=== PATIENT | female | born 1975 | race Two or more races ===

== ENCOUNTER 2022-10-05 17:28 | Emergency (ER) | payer MEDICAID ==
[~2022-10-05] VITALS: Ht 152.4 cm; Wt 68.0 kg
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
--- NOTE | 2022-10-05 19:05 | NUR ---
PT TAKEN TO RADIOLOGY FOR XRAY
[2022-10-05 19:40] VITALS: BP 134/82
--- NOTE | 2022-10-05 19:49 | NUR ---
PATIENT BACK FROM RADIOLOGY
[2022-10-05] MEDS ORDERED: IBUP-1955 PO (22:28)
[2022-10-05] MEDS ORDERED: CYCL10TA9 PO (22:28)
[2022-10-05] MEDS ORDERED: ACETAMINOPHEN 325 MG TABLET PO ONE (22:30)
[2022-10-05] MEDS ORDERED: TDAP [DIPH/PERTUSSIS/TET] 0.5 ML VIAL IM ONE ×2 (22:30→22:31)
[2022-10-05] MEDS ORDERED: ACETAMINOPHEN ES 500 MG TABLET ONE (22:31)
--- NOTE | 2022-10-05 22:56 | NUR ---
Patient discharged to home in stable condition. Written and verbal after care instructions given. Patient verbalizes understanding of instruction.
== END 2022-10-05 22:56 | disposition home or self-care (01) ==
LOC: ER 17:41
DX: S70.01XA Contusion of right hip, initial encounter (principal); S50.02XA Contusion of left elbow, initial encounter; S49.92XA Unspecified injury of left shoulder and upper arm, initial encounter; I10 Essential (primary) hypertension; E11.9 Type 2 diabetes mellitus without complications; Z79.899 Other long term (current) drug therapy; S70.02XA Contusion of left hip, initial encounter; W20.8XXA Other cause of strike by thrown, projected or falling object, initial encounter; Y93.89 Activity, other specified; Y92.89 Other specified places as the place of occurrence of the external cause; Y99.8 Other external cause status
CPT/HCPCS: 71100-TC; 72040-TC; 73030-TC; 73080-TC; 73521; 90715

== ENCOUNTER 2022-10-08 07:58 | Emergency (ER) | payer MEDICAID ==
[~2022-10-08] VITALS: Ht 149.9 cm; Wt 71.7 kg
[~2022-10-08 07:58] MED LIST: CYCL10TA9 PO; IBUP-1955 PO
[2022-10-08 08:05] VITALS: BP 115/84
--- NOTE | 2022-10-08 08:09 | NUR ---
to ER, C/O left shoulder and left hip pain.
--- NOTE | 2022-10-08 08:09 | NUR ---
awaiting for ER MD to see.
[2022-10-08] MEDS ORDERED: IBUP-1953 PO (08:14)
--- NOTE | 2022-10-08 08:19 | NUR ---
Patient discharged to home in stable condition. Written and verbal after care instructions given. Patient verbalizes understanding of instruction.
== END 2022-10-08 08:19 | disposition home or self-care (01) ==
LOC: ER 08:01
DX: M54.50 Low back pain, unspecified (principal); M25.552 Pain in left hip; I10 Essential (primary) hypertension; E11.9 Type 2 diabetes mellitus without complications; Z79.899 Other long term (current) drug therapy; V89.2XXD Person injured in unspecified motor-vehicle accident, traffic, subsequent encounter

== ENCOUNTER 2022-10-17 10:43 | Emergency (ER) | payer MEDICAID ==
[~2022-10-17] VITALS: Ht 142.2 cm; Wt 71.7 kg
[~2022-10-17 10:43] MED LIST changes: +IBUP-1953 PO
[2022-10-17 10:56] VITALS: BP 114/80
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
[2022-10-17] MEDS ORDERED: METHOCARBAMOL (500MG) 500 MG TABLET PO ONE (16:00)
[2022-10-17] MEDS ORDERED: LIDOCAINE 5% (PATCH) 1 EA PATCH TP ONE ×2 (16:00→16:01)
[2022-10-17] MEDS ORDERED: METHOCARBAMOL (500MG) 500 MG TABLET ONE (16:01)
[2022-10-17] MEDS ORDERED: LIDO30AD10 TP (16:34)
[2022-10-17] MEDS ORDERED: METH-649 PO (16:34)
== END 2022-10-17 19:04 | disposition home or self-care (01) ==
LOC: ER 11:03
DX: S16.1XXA Strain of muscle, fascia and tendon at neck level, initial encounter (principal); S70.02XA Contusion of left hip, initial encounter; M54.50 Low back pain, unspecified; I10 Essential (primary) hypertension; E11.9 Type 2 diabetes mellitus without complications; Z79.899 Other long term (current) drug therapy; V89.2XXA Person injured in unspecified motor-vehicle accident, traffic, initial encounter; Y93.89 Activity, other specified; Y92.89 Other specified places as the place of occurrence of the external cause; Y99.8 Other external cause status
CPT/HCPCS: 72125-TC; 72131-TC

== ENCOUNTER 2022-10-22 07:43 | Emergency (ER) | payer MEDICAID ==
[~2022-10-22] VITALS: Ht 149.9 cm; Wt 68.9 kg
[~2022-10-22 07:43] MED LIST changes: +LIDO30AD10 TP; +METH-649 PO
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
--- NOTE | 2022-10-22 08:15 | NUR ---
seen by md, splint ordered
[2022-10-22] MEDS ORDERED: IBUP-1953 PO (08:17)
[2022-10-22] MEDS ORDERED: CYCL10TA9 PO (08:17)
--- NOTE | 2022-10-22 08:38 | NUR ---
Patient discharged to home in stable condition ambulating by herself. Written and verbal after care instructions given in yakut. Patient verbalizes understanding of instruction.
[2022-10-22 08:39] VITALS: BP 124/72
== END 2022-10-22 08:40 | disposition home or self-care (01) ==
LOC: ER 07:49
DX: M79.602 Pain in left arm (principal); I10 Essential (primary) hypertension; E11.9 Type 2 diabetes mellitus without complications; Z79.899 Other long term (current) drug therapy